=== PATIENT | male | born 1945 | race Caucasian/White ===

== ENCOUNTER 2022-05-02 12:41 | Outpatient (CLI) | payer MEDICARE, BC ==
[~2022-05-02 12:41] MED LIST: Iopamidol 300 61% 100 ML VIAL FS ONE
== END 2022-05-02 12:42 | disposition home or self-care (01) ==
LOC: CSHCT 12:41
PROVIDERS: ATTEND Family Medicine
DX: R10.9 Unspecified abdominal pain (principal); K76.89 Other specified diseases of liver; D73.4 Cyst of spleen; N42.9 Disorder of prostate, unspecified; K40.20 Bilateral inguinal hernia, without obstruction or gangrene, not specified as recurrent; R91.8 Other nonspecific abnormal finding of lung field
CPT/HCPCS: 74177; 82565; Q9967

== ENCOUNTER 2023-03-16 08:43 | Outpatient (CLI) | payer MEDICARE, BC ==
[2023-03-16] MEDS ORDERED: Magnevist 469MG/ML 20 ML VIAL ONE (09:34)
== END 2023-03-16 08:44 | disposition home or self-care (01) ==
LOC: CSHMRI 08:43
PROVIDERS: ATTEND Psychiatry & Neurology Neurology
DX: R25.1 Tremor, unspecified (principal)
CPT/HCPCS: 70553